=== PATIENT | female | born 1965 | race African-American/Black ===

== ENCOUNTER 2018-03-01 09:38 | Day surgery (SDC) | payer OTHER ==
[~2018-03-01] VITALS: Ht 167.6 cm; Wt 115.7 kg
[2018-03-01] VITALS (10 sets, daily range): BP systolic 111–127; BP diastolic 70–81
[~2018-03-01 09:38] MED LIST: ceFAZolin 1gm in D5W 55ml IVP ONE; oxyCONTIN 20mg tab ORAL ONE
[2018-03-01] MEDS ORDERED: NKM (11:12)
--- NOTE | 2018-03-01 11:46 | Operative Note - PDOC ---
Operative Note Operative Note Pre-op Diagnosis: left shoulder internal derangement Procedure: op report Post-op Diagnosis: same as pre-op plus Operative Findings: consistent w/pre-op dx studies Anesthesia: general Specimen: none Complications: none Condition: stable Estimated Blood Loss: none Implant(s) used?: No Jame Palma MD Mar 01, 2018 11:46
--- NOTE | 2018-03-01 11:46 | Pre-Procedure Note/Attestation ---
Pre-Procedure Note/Attestation Complete Prior to Procedure Planned Procedure: left Procedure Narrative: shoulder arthroscopy, sad, possible rc repair Indications for Procedure Pre-Operative Diagnosis: left shoulder internal derangement Attestation I attest that I discussed the nature of the procedure; its benefits; risks and complications; and alternatives (and the risks and benefits of such alternatives ), prior to the procedure, with the patient (or the patient's legal motor vehicle field representative). I attest that, if there was a reasonable possibility of needing a blood transfusion, the patient (or the patient's legal motor vehicle field representative) was given the [facility] standardized written summary, pursuant to the [place] Blood Safety Act ([place] Health and Safety Code # 1645, as amended). I attest that I re-evaluated the patient just prior to the surgery and that there has been no change in the patient's H&P, except as documented below: Jame Palma MD Mar 01, 2018 11:46
[2018-03-01] MEDS ORDERED: oxyCONTIN 20mg tab ORAL ONE (11:49)
[2018-03-01] MEDS ORDERED: EPINEPHrine 1mg/1ml Amp ONE (13:19)
[2018-03-01] MEDS ORDERED: Bupivacaine w/Epi 0.25% 30ml Vial INJ ONE (13:19)
[2018-03-01] MEDS ORDERED: Ropivacaine 5mg/ml Vial 30ml INJ ONE (13:31)
[2018-03-01] MEDS ORDERED: Lidocaine 1% MPF 10mg/ml 5ml ONE (13:31)
[2018-03-01] MEDS ORDERED: Sodium Chloride 10ml vial INJ ONE (13:31)
[2018-03-01] MEDS ORDERED: Dexamethasone 4mg/ml vial ONE ×2 (13:31→14:26)
[2018-03-01] MEDS ORDERED: Propofol 200mg/20ml IV ONE (13:31)
[2018-03-01] MEDS ORDERED: Alfentanil 2ml Inj ONE (13:35)
[2018-03-01] MEDS ORDERED: LR 1000ml 1,000 ML IVLG SCH (14:08)
[2018-03-01] MEDS ORDERED: Metoclopramide 10mg/2ml Inj IVP PRN (14:15)
[2018-03-01] MEDS ORDERED: DiphenhydrAMINE 50mg/ml Inj IVP PRN (14:15)
[2018-03-01] MEDS ORDERED: fentaNYL 100 mcg/2 mL IV PRN (14:15)
[2018-03-01] MEDS ORDERED: Ketorolac 30mg Inj IV PRN ×2 (14:15)
[2018-03-01] MEDS ORDERED: oxyCODONE HCL/Acetaminophen 5/325mg ORAL PRN (14:15)
[2018-03-01] MEDS ORDERED: Meperidine 50mg/ml Inj(FOR RIGORS ONLY) IVP PRN (14:15)
[2018-03-01] MEDS ORDERED: LORazepam Inj 2mg/ml 1ml IV PRN (14:15)
[2018-03-01] MEDS ORDERED: Hydromorphone 0.5mg/0.5ml inj IVP PRN (14:15)
[2018-03-01] MEDS ORDERED: Midazolam 2mg/2ml Inj IVP PRN (14:15)
[2018-03-01] MEDS ORDERED: Atropine Sulfate 0.4mg/ml inj IVP PRN (14:15)
[2018-03-01] MEDS ORDERED: HYDROcodone/Acetamin 7.5/325 tab ORAL PRN (14:15)
[2018-03-01] MEDS ORDERED: Norco 5mg/325mg tab ORAL PRN ×2 (14:15→18:30)
--- NOTE | 2018-03-01 14:19 | Anethesia Preoperative Eval ---
Anesthesia Pre-op PMH/ROS General Date of Evaluation: Mar 01, 2018 Time of Evaluation: 13:33 Anesthesiologist: Fred ASA Score: ASA 3 Mallampati Score Class I : Soft palate, uvula, fauces, pillars visible Class II: Soft palate, uvula, fauces visible Class III: Soft palate, base of uvula visible Class IV: Only hard plate visible Mallampati Classification: Class II Surgeon: Louie Diagnosis: L Shoulder Pain Surgical Procedure: L Shoulder Arthroscopy Anesthesia History: none Family History: no anesthesia problems Allergies: Coded Allergies: ERYTHROMYCIN BASE (Verified Allergy, Intermediate, 03/01/18) UPSET STOMACH Dairy (Verified Allergy, Unknown, 03/01/18) EAR INFECTION,UPPER RESPIRATORY INFECTION Uncoded Allergies: SULFA (Allergy, Severe, 03/01/18) HIVES,ITCHING Medications: see eMAR Patient NPO?: Yes Past Medical History Cardiovascular: Reports: HTN Pulmonary: Reports: asthma - Bronchitis Neurologic/Psychiatric: Reports: depression/anxiety Other: obesity - BMI 44 PSxH Narrative: Breast Bx, Cervix Sx, Anesthesia Pre-op Phys. Exam Physician Exam Last Vital Signs Date Time Temp Pulse Resp B/P (MAP) Pulse Ox O2 Delivery O2 Flow Rate FiO2 03/01/18 11:31 97.7 88 20 111/77 97 Room Air 97.7 Constitutional: NAD Neurologic: CN 2-12 intact Cardiovascular: RRR Respiratory: CTA Gastrointestinal: S/NT/ND Airway Exam Mallampati Score: Class II MO: full ROM: full Teeth: intact Anesthesia Pre-op A/P Labs Urine Test Test 03/01/18 11:30 Urine HCG, Qualitative Negative (NEGATIVE) Risk Assessment & Plan Assessment: ASA 3 Plan: GA, Supraclavicular Block Status Change Before Surgery: No Pre-Antibiotics Dru Gram Ancef IV Given Within 1 Hr of Incision: Yes Time Given: 13:42 Alex Iabrra MD Mar 01, 2018 14:19
--- NOTE | 2018-03-01 14:25 | Immediate Post-Op Evaluation ---
Immediate Post-Op Evalulation Immediate Post-Op Evalulation Procedure: L Shoulder Arthrscopy Date of Evaluation: Mar 01, 2018 Time of Evaluation: 15:35 IV Fluids: 800 LR Blood Products: 0 Estimated Blood Loss: 20 Urinary Output: 0 Blood Pressure Systolic: 125 Blood Pressure Diastolic: 81 Pulse Rate: 99 Respiratory Rate: 16 O2 Sat by Pulse Oximetry: 99 Temperature (Fahrenheit): 97.6 Pain Score (1-10): 1 Nausea: No Vomiting: No Complications 0 Patient Status: awake, reacts, patent, none Hydration Status: adequate Dru Gram Ancef IV Given Within 1 Hr of Incision: Yes Time Given: 13:42 Alex Ibarra MD Mar 01, 2018 14:25
--- NOTE | 2018-03-01 14:26 | 48 Hour Post Anesthesia Eval ---
Post Anesthesia Evaluation Procedure: L Shoulder Arthrscopy Date of Evaluation: Mar 01, 2018 Time of Evaluation: 17:43 Blood Pressure Systolic: 121 0: 78 Pulse Rate: 87 Respiratory Rate: 18 Temperature (Fahrenheit): 98.2 O2 Sat by Pulse Oximetry: 97 Airway: patent Nausea: No Vomiting: No Pain Intensity: 1 Hydration Status: adequate Cardiopulmonary Status: Stable Mental Status/LOC: patient returned to baseline Follow-up Care/Observations: 0 Post-Anesthesia Complications: 0 Follow-up care needed: ready to discharge Alex Ibarra MD Mar 01, 2018 14:26
[2018-03-01] MEDS ORDERED: NS Irrig 4000ml IRRIG ONE (14:33)
[2018-03-01] MEDS ORDERED: Tylenol #3 tab (300mg/30mg) ORAL PRN (18:30)
[2018-03-01] MEDS ORDERED: D5 1/2NS 1,000 ML IV SCH (18:30)
[2018-03-01] MEDS ORDERED: HYDROmorphone 1mg/ml Carpuject SUBQ PRN (18:30)
--- NOTE | 2018-03-02 01:45 | Operative Note - Dictated ---
DATE OF OPERATION: 03/01/2018 PREOPERATIVE DIAGNOSIS: Left shoulder full-thickness rotator cuff tear. POSTOPERATIVE DIAGNOSIS: Left shoulder full-thickness rotator cuff tear. PROCEDURES: 1. Left shoulder diagnostic arthroscopy extensive intraarticular debridement. 2. Left shoulder subacromial decompression and bursectomy. 3. Left shoulder rotator cuff repair. SURGEON: Jame Palma M.D. ANESTHESIA: Interscalene with general. INDICATION FOR PROCEDURE: The patient is a pleasant female, who has had progressive left shoulder pain and difficulty with overhead activities. An MRI showed concern for high-grade possible full-thickness rotator cuff tear. She failed conservative treatment and elected to undergo left shoulder arthroscopy. Risks, limitations, expectations, and complications of procedure were discussed in detail. All questions addressed. DESCRIPTION OF PROCEDURE: After informed consent was obtained, the patient was brought to the operating room. We placed the patient under general interscalene anesthesia. The patient was then carefully placed in beach-chair position. Left shoulder was prepped and draped in a sterile manner. Time-out was performed. A posterolateral stab incision was then made. Trocar was introduced into the glenohumeral joint. There was some fraying along the superior labrum along the subscapularis. The biceps tendon appeared to be intact. The footprint of the rotator cuff along the supraspinatus and infraspinatus completely detached. She was then placed in the lateral working portal. The tissue lateral to the articular margin was debrided. It was then repositioned in subacromial space, complete bursectomy. The acromion was identified. Acromioplasty was started from lateral to medial and completed posterior to anterior. Once that was done, two arthroscopic anchors were then placed to cinch down the supraspinatus and infraspinatus tendon down to the greater tuberosity. The camera was repositioned in the subacromial space. The footprint was recreated. At this point, the instruments were removed. Portal sites were closed with 3-0 Monocryl sutures. Steri-Strips and sterile dressing were applied. The patient was awoken and taken to recovery room with stable vital signs. ESTIMATED BLOOD LOSS: None. COMPLICATIONS: None. SPECIMENS: None. IMPLANTS: Include 2 JuggerKnot anchors. Jame Palma M.D. DR: MELLO JOB#: [id number] CC:
== END 2018-03-01 13:35 | disposition home or self-care (01) ==
LOC: SUR 09:38
DX: M75.102 Unspecified rotator cuff tear or rupture of left shoulder, not specified as traumatic (principal); F41.9 Anxiety disorder, unspecified; F32.9 Major depressive disorder, single episode, unspecified; E66.9 Obesity, unspecified; Z68.41 Body mass index [BMI] 40.0-44.9, adult; R73.03 Prediabetes; I10 Essential (primary) hypertension; J45.909 Unspecified asthma, uncomplicated; Z88.2 Allergy status to sulfonamides; Z88.1 Allergy status to other antibiotic agents; Z91.011 Allergy to milk products
CPT/HCPCS: 29826; 29827; 81025; C1713; J0171; J0690; J1100; J2250; J2405; J2704; J2795; J3490; 94003; 94150